=== PATIENT | male | born 1990 | race American Indian/Alaskan Native ===

== ENCOUNTER 2018-12-10 23:46 | Emergency (ER) | payer OTHER ==
[2018-12-11 00:01] VITALS: BP 105/63
[2018-12-11] MEDS ORDERED: ROCEPHIN IM ONE (01:33)
[2018-12-11] MEDS ORDERED: ZITHROMAX PO ONE (01:33)
[2018-12-11] MEDS ORDERED: XYLOCAINE 1% MPF 5 mL INFILTRATI ONE (01:33)
--- NOTE | 2018-12-11 01:36 | Emergency Department Report ---
ED Dysuria HPI - HPI Chief Complaint: Urogenital-Male Stated Complaint: STD CHECK Time Seen by Provider: 12/11/18 01:32 Duration: 3 Days Location of Discomfort: Urethra (dysuria) Severity: Mild Symptoms: Dysuria: Yes, Frequency: No, Suprapubic Pain: No, Flank Pain: No, Fever: No, Hematuria: No, Abdominal Pain: No, Previous UTI's: No Other History: HERE WITH PENILE DC AND TINGLING. NO TESTICULAR PAIN. CONCERN FOR STI. NO TESTICULAR PAIN. ED Review of Systems ROS: Stated complaint: STD CHECK Other details as noted in HPI Comment: All other systems reviewed and negative ED Past Medical Hx - Past Medical History Previous Medical History?: No - Surgical History Past Surgical History?: No - Family History Family history: no significant - Social History Smoking Status: Never Smoker Dysuria Exam - Exam General: Vital signs noted. No distress. Alert and acting appropriately. 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 Vital Signs 12/10/18 23:58 Temperature 98.4 F Pulse Rate 70 Respiratory 16 Rate Blood Pressure 105/63 O2 Sat by Pulse 99 Oximetry - Differential Diagnosis STD Critical care attestation.: If time is entered above; I have spent that time in minutes in the direct care of this critically ill patient, excluding procedure time. ED Disposition Clinical Impression: STI (sexually transmitted infection) Disposition: DC-01 TO HOME OR SELFCARE Is pt being admited?: No Does the pt Need Aspirin: No Condition: Stable Instructions: Safe Sex (ED) Referrals: [facility] [Outside] - 3-5 Days Time of Disposition: 01:35
[2018-12-11 02:39] LABS: Bacteria,Urine 2+ /HPF (Negative); Bilirubin,Urine NEG (Negative); Blood,Urine MOD (Negative); Color,Urine Yellow (Yellow); Mucus,Urine 2+ /HPF
[2018-12-11 02:46] LABS: WBC,Urine > 182.0 /HPF (0.0-6.0)
== END 2018-12-11 02:15 | disposition home or self-care (01) ==
LOC: ED 23:46
DX: A64 Unspecified sexually transmitted disease (principal)
CPT/HCPCS: 81001; 87591; 96372; 99283; J0696

== ENCOUNTER 2018-12-16 11:44 | Emergency (ER) | payer OTHER ==
--- NOTE | 2018-12-16 11:57 | Emergency Department Report ---
Blank Doc - Documentation Documentation: This is a 28-year-old male that presents with acute lumbar spine pain. Denies any hx of pain. Denies any urinary symptoms. This initial assessment/diagnostic orders/clinical plan/treatment(s) is/are subject to change based on patient's health status, clinical progression and re- assessment by fellow clinical providers in the ED. Further treatment and workup at subsequent clinical providers discretion. Patient/guardians urged not to elope from the ED as their condition may be serious if not clinically assessed and managed. Initial orders include: 1- Patient sent to [facility] for further evaluation and treatment 2- lumbar xray
[2018-12-16 11:58] VITALS: BP 109/65
--- NOTE | 2018-12-16 12:37 | XRay Report ---
CLINICAL DATA: low back pain TECHNICAL DATA: AP and lateral views lumbar spine. FINDINGS: The bone mineralization is normal. Vertebral body heights are normal. Intervertebral disc spaces are well maintained. Pedicles and spinous processes are normal in alignment. SI joints and sacrum are nor mal. IMPRESSION: Normal examination lumbar spine. Signer Name: Marek Espinoza MD Signed: 12/16/2018 12:33 PM Workstation Name: [id number]
[2018-12-16] MEDS ORDERED: TORADOL IM ONE (14:55)
--- NOTE | 2018-12-16 15:13 | Emergency Department Report ---
ED Back Pain/Injury HPI - General Chief Complaint: Back Pain/Injury Stated Complaint: BACK PAIN Time Seen by Provider: 12/16/18 11:56 Source: patient Limitations: No Limitations - History of Present Illness Initial Comments: Chano is a 28 yo male who presents with back pain left lower back radiationg to sacral region tense dull. No fever. NO vomiting. Does heavy lifting on the job. NO leg involvement. No bowel or bladder incontinence. He personally drove himself to ER by private vehicle. MD Complaint: back pain -: Gradual Similar Symptoms Previously: No Radiation: none Severity: moderate Quality: dull Consistency: constant Worsens With: movement Associated Symptoms: denies other symptoms - Related Data Previous Rx's Medication Instructions Recorded Last Taken Type Cyclobenzaprine [Flexeril] 10 mg PO TID PRN #15 tablet 12/16/18 Unknown Rx HYDROcodone/APAP 5-325 [Blair 1 each PO Q6HR PRN #10 tablet 12/16/18 Unknown Rx 5/325] Ibuprofen [Motrin 800 MG tab] 800 mg PO Q8HR PRN #10 tablet 12/16/18 Unknown Rx Allergies Allergy/AdvReac Type Severity Reaction Status Date / Time No Known Allergies Allergy Verified 12/11/18 00:00 ED Review of Systems ROS: Stated complaint: BACK PAIN Other details as noted in HPI Comment: All other systems reviewed and negative Constitutional: denies: fever, malaise Cardiovascular: denies: chest pain ED Past Medical Hx - Past Medical History Previous Medical History?: No - Surgical History Past Surgical History?: No - Social History Smoking Status: Never Smoker Substance Use Type: None - Medications Home Medications: Home Medications Medication Instructions Recorded Confirmed Last Taken Type Cyclobenzaprine [Flexeril] 10 mg PO TID PRN #15 tablet 12/16/18 Unknown Rx HYDROcodone/APAP 5-325 [Blair 1 each PO Q6HR PRN #10 tablet 12/16/18 Unknown Rx 5/325] Ibuprofen [Motrin 800 MG tab] 800 mg PO Q8HR PRN #10 tablet 12/16/18 Unknown Rx ED Physical Exam - General Limitations: No Limitations General appearance: alert, in no apparent distress - Head Head exam: Present: atraumatic, normocephalic - Eye Eye exam: Present: normal appearance - ENT ENT exam: Present: mucous membranes moist - Neck Neck exam: Present: normal inspection, full ROM - Respiratory Respiratory exam: Present: normal lung sounds bilaterally. Absent: respiratory distress, wheezes, rales, rhonchi - Cardiovascular Cardiovascular Exam: Present: regular rate, normal rhythm, normal heart sounds. Absent: systolic murmur, diastolic murmur, rubs, gallop - GI/Abdominal GI/Abdominal exam: Present: soft, normal bowel sounds. Absent: distended, tenderness, guarding, rebound - Rectal Rectal exam: Present: deferred - Extremities Exam Extremities exam: Present: normal inspection - Back Exam Back exam: Present: normal inspection - Neurological Exam Neurological exam: Present: alert, oriented X3 - Psychiatric Psychiatric exam: Present: normal affect, normal mood - Skin Skin exam: Present: warm, dry, intact, normal color. Absent: rash ED Course Vital Signs 12/16/18 11:56 Temperature 98.6 F Pulse Rate 80 Respiratory 18 Rate Blood Pressure 109/65 O2 Sat by Pulse 99 Oximetry ED Medical Decision Making - Medical Decision Making Chano presents with lower back strain. No indication of renal colic. Positional. Rx: norco Ibuprofen flexeril I reviewed vital signs which were stable. Critical care attestation.: If time is entered above; I have spent that time in minutes in the direct care of this critically ill patient, excluding procedure time. ED Disposition Clinical Impression: Low back strain Disposition: DC-01 TO HOME OR SELFCARE Is pt being admited?: No Does the pt Need Aspirin: No Condition: Stable Instructions: Low Back Strain (ED) Prescriptions: Cyclobenzaprine [Flexeril] 10 mg PO TID PRN #15 tablet PRN Reason: Muscle Spasm Ibuprofen [Motrin 800 MG tab] 800 mg PO Q8HR PRN #10 tablet PRN Reason: Pain , Severe (7-10) HYDROcodone/APAP 5-325 [Blair 5/325] 1 each PO Q6HR PRN #10 tablet PRN Reason: Pain Forms: Work/School Release Form(ED)
== END 2018-12-16 15:31 | disposition home or self-care (01) ==
LOC: ED 11:44
DX: S39.012A Strain of muscle, fascia and tendon of lower back, initial encounter (principal); Z79.899 Other long term (current) drug therapy; X50.0XXA Overexertion from strenuous movement or load, initial encounter; Y93.89 Activity, other specified; Y92.89 Other specified places as the place of occurrence of the external cause; Y99.0 Civilian activity done for income or pay
CPT/HCPCS: 72100; 96372; 99283; J1885